=== PATIENT | female | born 1995 | race Caucasian/White ===

== ENCOUNTER 2024-10-22 19:02 | Emergency (ER) | payer MEDICAID, SELFPAY ==
--- OUTSIDE RECORDS SUMMARY | 2024-05-10 11:00 | XMS_ITS ---
Author Organization [facility] Address [address] [place] [address] Care Team Providers Care Scenic Arts Supervisor Name Role Phone Becca Quintanilla Primary Care Provider REASON FOR VISIT 3 month f/u Encounters Encounter Location Date Provider Diagnosis [facility] [address] [place] [address] 05/10/2024 Becca Quintanilla Plan Of Treatment No Information Progress Notes * FLORIAN ROBINS KDOB:1995 (29 yo F)Acc No.[id number]:05/10/2024 Behavioral Health Patient: Alex ZUNIGA FLORIAN Copeland Appointment Provider: GREGORIA JONES :1995 A ge:28 Y S ex:Female Date:05/10/2024 Address:[address] [place] [address] Subjective: * Chief Complaints: * 1 . 3 month f/u. * Medical History: Objective: * Vitals: Assessment: Plan: * Treatment: Care Plan: * Problems: * Images: * Electronic signature of ZEN Weiss i on 10/22/2024 at 07:49 PM EDT Sign off status: Pending * Appointment Provider: GREGORIA JONES Date: 0 05/10/2024 Generated for Letitia watt/Heike/Deborah on: 0 10/22/2024 07:49 PM EDT
--- OUTSIDE RECORDS SUMMARY | 2024-08-09 04:26 | XMS_ITS | Continuity of Care Document ---
Author Organization [facility] Address [address] [place] [address] Phone Care Team Providers Care Senior Web Analyst Name Role Phone Octaviano Dawn Unavailable Unavailable Procedures Procedure Date ROUTINE VENIPUNCTURE Advance Directives Directive Yes / No Effective Date File Name No Information Encounters Encounter Description Practice Location Reason(s) For Visit Diagnoses Date Provider Providers Copied on Encounter [facility], [address], [place], [id number], [place] tel:[phone] [facility] pre employment (chief complaint) No Information Bunny Garcia. [address], [place], [id number], [place]. tel:[phone] Family History Family Member Type Diagnosis Age At Onset No Information Payers Payer name Insurance type Covered constitution party ID Authoriza tion(s) Self Pay Cap 09 [id number] Social History Type Description Quantity Date Captured Comments Alcohol Use Details Unknown Caffeine Use Details Unknown Tobacco Use Status No Information Smoking Status No Information Sex Female Chief Complaint And Reason For Visit From encounter dated '08/09/2024 08:26'. pre employment (chief complaint). Description: Pre employment lad draw.BRIANeiAmarjit Reason For Referral Reason For Referral No Information Plan Of Treatment Date Type Action Status Goal PRAPARE ASSESSMENT. Due on J due Goal Unhealthy drug use screening . Due on due Goal Depression screening. Due on due Goal Tdap. Due on due Goal RLP. Due on due Goal Tdap Vaccine. Due on 2024 due Goal PAP. Due on due Goal Influenza vaccine. Due on Ju due Goal Hepatitis C screening. Due o n due Goal Hep A. Due on du e History Of Present Illness Encounter Date Complaint History Of Prese nt Illness pre employment Pre [facility] l [facility] Functional Status Date Functional Assessmen t No Information Instructions Date Instruction Additional Infor mation No Information Assessments Type Assessment Date No Information Patient Care Teams Name Effective Dates (start - stop) Status Members No Information
--- OUTSIDE RECORDS SUMMARY | 2024-10-14 18:15 | XMS_ITS | Encounter Summary ---
Author Organization [facility] Address [address] [place] [address] Care Team Providers Care Armored Car Messenger Name Role Phone Walekr Henry DO Primary Care Provider [phone] Walker Henry DO Unavailable [phone] Encounter Details Date Type Department Care Team (Late st Contact Info) Description 10/14/2024 6:15 PM EDT [facility] [address] [place] [address] Dalila Montez, WIRELESS FIELD TECHNICIAN [address] [place] [address] Dysuria (Primary Dx); Acute cystitis with hematuria Social History Tobacco Use Types Packs/Day Years Used Date Smoking Tobacco: Never Smokeless Tobacco: Never Alcohol Use Standard Drinks/Week Comments Not Currently 1 (1 standard drink = 0.6 oz pur e alcohol) PHQ-2 Answer Date Recorded Patient Health Questionnaire-2 Score 0 10/06/2024 Comments No Sex and Gender Information Value Date Recorded Sex Assigned at Not on file Legal Sex Female 7:09 PM EDT Gender Identity Not on file Sexual Orientation Not on file documented as of this encounter Last Filed Vital Signs Vital Sign Reading Time Taken Comments Blood Pressure 124/80 10/14/2024 6:22 PM EDT Pulse 88 10/14/2024 6:22 PM EDT Temperature 36.7 C (98 F) 10/14/2024 6:22 PM EDT Respiratory Rate - - Oxygen Saturation 99% 10/14/2024 6:22 PM EDT Inhaled Oxygen Concentration - - Weight 65.8 kg (145 lb) 10/14/2024 6:22 PM EDT Height - - Body Mass Index 24.89 10/06/2024 1:50 PM EDT documented in this encounter Progress Notes * Dalila Montez, PANKAJ - 10/14/2024 6:15 PM EDT Images from the original note were not included. [address], [address] [facility], [address] P: [phone] F: [phone] HPI Historian of HPI: patient Lourdes Patricia is a 29 y.o. female who presents today to the Urgent Care with the following complaints and denials which have been present for 4 day(s) pt states she had a hysterectomy on 10/01/2024. Pt states she saw her OB on Friday for a UTI and was placed on sulfamethoxazole tmp ds which pt feels that amitotic is not helping at all. Pt would like a new antibiotic. C/O Denies Symptom Comments [x] [] Dysuria Bladder spasms [x] [] hematuria Blood in urine [] [x] Urinary frequency [] [x] Urinary incontinence [] [x] Urinary urgency [] [x] Genital itching [] [x] Genital discharge [] [x] Back pain [x] [] Abd pain Additional Comments: pt has not taken any OTC medications IH Testing: An In-House UA has been obtained ROS A complete system ROS was performed and negative aside from the pertinent positives noted in the HPI and PE. PHYSICAL EXAM Gen: well nourished, no acute distress, interactive Head: normocephalic, atraumatic HEENT: TMs pearly pagan, tongue midline, mucous membranes moist Lungs: CTAB, respiratory effort normal Heart: RRR without murmur, rub, gallop Abdomen: BS x 4, soft, no palpable mass, suprapubic tenderness Extremities: warm to touch, capillary refill x 3 seconds Neuro: alert, oriented, moving all extremities Psych: cooperative, appropriately interactive TREATMENT PLAN 1. Dysuria (Primary) UA results discussed. Instructed to call on Friday for culture results. - URINALYSIS ANALYZER TEST - URINARY TRACT INFECTION (HTRX) 2. Acute cystitis with hematuria Diagnosis and testing results discussed Push fluids, rest, good handwashing, avoid tub baths and jacuzzis To ER for any worsening of symptoms - to the ER for worsening cramping, increased bleeding saturating pads, fever, worsening pain Follow up with gynecology in 3-5 days for recheck of symptoms Call office in 2-3 days for culture results - nitrofurantoin, macrocrystal-monohydrate, (Macrobid) 100 MG capsule; Take 1 capsule (100 mg) by mouth in the morning and 1 capsule (100 mg) before bedtime. Do all this for 7 days. Dispense: 14 capsule; Refill: 0 documented in this encounter Miscellaneous Notes * Addendum Note - Jolanta Wright MA - 10/14/2024 6:15 PM EDTAddended by: JOLANTA WRIGHT on: 10/16/2024 06:53 PM Modules accepted: Level of Service documented in this encounter Plan of Treatment Not on file documented as of this encounter Procedures Procedure Name Priority Date/Time Associated Diagnosis Comments URINARY TRACT INFECTION (HTRX) Routine 10/14/2024 6:38 PM EDT Dysuria URINALYSIS ANALYZER TEST Routine 10/14/2024 6:27 PM EDT Dysuria documented in this encounter Results * (ABNORMAL) URINARY TRACT INFECTION (HTRX) (10/14/2024 6:38 PM EDT) Pathologist [facility] TET B, TET M 26.786(A) 23.000 - 27.500 ppm 10/16/2024 6:58 AM EDT [facility] TET B, TET M Detected(A) 23.000 - 27.500 ppm 10/16/2024 6:58 AM EDT [facility] ACINETOBACTER BAUMANII 0 19.961 - 24.689 ppm 10/16/2024 6:58 AM EDT [facility] ACINETOBACTER BAUMANII Not Detected 19.961 - 24.689 ppm 10/16/2024 6:58 AM EDT [facility] CITROBACTER FREUNDII 0 23.000 - 32.015 ppm 10/16/2024 6:58 AM EDT [facility] CITROBACTER FREUNDII Not Detected 23.000 - 32.015 ppm 10/16/2024 6:58 AM EDT [facility] ENTEROBACTER AEROGENES, CLOACAE 0 23.000 - 32.290 ppm 10/16/2024 6:58 AM EDT [facility] ENTEROBACTER AEROGENES, CLOACAE Not Detected 23.000 - 32.290 ppm 10/16/2024 6:58 AM EDT [facility] ENTEROCOCCUS FAECALIS, FAECIUM 0 26.000 - 33.043 ppm 10/16/2024 6:58 AM EDT [facility] ENTEROCOCCUS FAECALIS, FAECIUM Not Detected 26.000 - 33.043 ppm 10/16/2024 6:58 AM EDT [facility] ESCHERICHIA COLI 25.314(A) 23.000 - 28.500 ppm 10/16/2024 6:58 AM EDT [facility] ESCHERICHIA COLI Detected(A) 23.000 - 28.500 ppm 10/16/2024 6:58 AM EDT [facility] KLEBSIELLA PNEUMONIAE, OXYTOCA 0 23.000 - 31.865 ppm 10/16/2024 6:58 AM EDT [facility] KLEBSIELLA PNEUMONIAE, OXYTOCA Not Detected 23.000 - 31.865 ppm 10/16/2024 6:58 AM EDT [facility] MORGANELLA MORGANII 0 19.961 - 24.689 ppm 10/16/2024 6:58 AM EDT [facility] MORGANELLA MORGANII Not Detected 19.961 - 24.689 ppm 10/16/2024 6:58 AM EDT [facility] PROTEUS MIRABILIS, VULGARIS 0 23.000 - 28.500 ppm 10/16/2024 6:58 AM EDT [facility] PROTEUS MIRABILIS, VULGARIS Not Detected 23.000 - 28.500 ppm 10/16/2024 6:58 AM EDT [facility] PSEUDOMONAS AERUGINOSA 0 23.000 - 31.801 ppm 10/16/2024 6:58 AM EDT [facility] PSEUDOMONAS AERUGINOSA Not Detected 23.000 - 31.801 ppm 10/16/2024 6:58 AM EDT [facility] STAPHYLOCOCCUS AUREUS 0 26.000 - 31.595 ppm 10/16/2024 6:58 AM EDT [facility] STAPHYLOCOCCUS AUREUS Not Detected 26.000 - 31.595 ppm 10/16/2024 6:58 AM EDT [facility] STREPTOCOCCUS AGALACTIAE (GROUP B STREP) 0 26.000 - 32.435 ppm 10/16/2024 6:58 AM EDT [facility] STREPTOCOCCUS AGALACTIAE (GROUP B STREP) Not Detected 26.000 - 32.435 ppm 10/16/2024 6:58 AM EDT [facility] DAVID ALBICANS, PARAPSILOSIS, TROPICALIS 0 23.000 - 30.347 ppm 10/16/2024 6:58 AM EDT [facility] DAVID ALBICANS, PARAPSILOSIS, TROPICALIS Not Detected 23.000 - 30.347 ppm 10/16/2024 6:58 AM EDT [facility] DAVID GLABRATA 0 23.000 - 31.618 ppm 10/16/2024 6:58 AM EDT [facility] DAVID GLABRATA Not Detected 23.000 - 31.618 ppm 10/16/2024 6:58 AM EDT [facility] DAVID KRUSEI 0 23.000 - 30.873 ppm 10/16/2024 6:58 AM EDT [facility] DAVID KRUSEI Not Detected 23.000 - 30.873 ppm 10/16/2024 6:58 AM EDT [facility] SERRATIA MARCESCENS 0 23.000 - 31.581 ppm 10/16/2024 6:58 AM EDT [facility] SERRATIA MARCESCENS Not Detected 23.000 - 31.581 ppm 10/16/2024 6:58 AM EDT [facility] STREPTOCOCCUS PYOGENES (GROUP A STREP) 0 19.961 - 24.689 ppm 10/16/2024 6:58 AM EDT [facility] STREPTOCOCCUS PYOGENES (GROUP A STREP) Not Detected 19.961 - 24.689 ppm 10/16/2024 6:58 AM EDT [facility] STAPHYLOCOCCUS EPIDERMIDIS, HAEMOLYTICUS, LUGDUNENSIS, SAPROPHYTICUS (URINA 0 19.961 - 24.689 ppm 10/16/2024 6:58 AM EDT [facility] STAPHYLOCOCCUS EPIDERMIDIS, HAEMOLYTICUS, LUGDUNENSIS, SAPROPHYTICUS (URINA Not Detected 19.961 - 24.689 ppm 10/16/2024 6:58 AM EDT [facility] STAPHYLOCOCCUS EPIDERMIDIS, HAEMOLYTICUS, LUGDUNENSIS, SAPROPHYTICUS (URINA 0 19.961 - 24.689 ppm 10/16/2024 6:58 AM EDT [facility] STAPHYLOCOCCUS EPIDERMIDIS, HAEMOLYTICUS, LUGDUNENSIS, SAPROPHYTICUS (URINA Not Detected 19.961 - 24.689 ppm 10/16/2024 6:58 AM EDT [facility] Urine 10/14/2024 6:38 PM EDT 10/16/2024 1:20 AM EDT us Dalila Montez NP LAB BLOOD ORDERABLES Final R esult [facility] [address] [address] * (ABNORMAL) URINALYSIS ANALYZER TEST (10/14/2024 6:27 PM EDT) LEUKOCYTES negative Negative NITRITES negative Negative UROBILINOGEN negative 0.2 - 1.0 PROTEIN 1+ Negative PH 6.0 5.0 - 6.0 BLOOD 3+ Negative SPECIFIC GRAVITY 1.030 1.001 - 1.035 KETONES negative Negative BILIRUBIN negative Negative GLUCOSE negative Negative Urine 10/14/2024 6:27 PM EDT Dalila Montez WIRELESS FIELD TECHNICIAN POINT OF CARE TEST ENTER/DAMIEN T ORDERABLES Final Result documented in this encounter Visit Diagnoses Diagnosis Dysuria- Primary Acute cystitis with hematuria documented in this encounter Care Teams Armored Car Messenger Relationship Specialty Start Date End Date Walker Henry DO [address] [place] [address] PCP - General Family Medicine 08/01/22 Walker Henry DO [address] [place] [address] PCP - [facility] 03/03/24 documented as of this encounter
--- OUTSIDE RECORDS SUMMARY | 2024-10-22 19:49 | XMS_ITS | Clinical Summary ---
Author Organization [facility] Address [address] [place] [id number] Care Team Providers Care Metal Polisher And Buffer Apprentice Name Role Phone Anette Webster MD Unavailable [phone] Walker Henry DO Primary Care Provid er Dagoberto Wallace MD Unavailable [phone] Allergies Active Allergy Reactions Criticality Noted Date Comments Banana Unknown 01/31/2016 Estrogens Contraindication-M edical Surgical 02/15/2016 pt has hx of stroke 07/2015 Lactose GI Upset 01/31/2016 Medroxyprogesterone Acetate Hives 10/18/19 15 fever Pineapple Swelling 01/31/2016 Medications clopidogrel (PLAVIX) 75 mg tablet Take 75 mg by mouth once daily. Active DULoxetine (CYMBALTA) 30 mg capsule Take 1 capsule by mouth once daily. 8 Active DULoxetine (CYMBALTA) 60 mg capsule Take 1 capsule by mouth once daily. 8 Active doxylamine-pyri doxine, vit B6, (DICLEGIS) 10-10 mg TbEC Day 1: Take 2 tabs at bedtime. If symptoms persist, add 1 tab in AM on day 3. If symptoms persist, add 1 tab in afternoon on day 4. 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 Family History Medical History Relation Comments Coronary Artery Disease Maternal Grandmother Hypertension Mother Moon Danlos Syndrome Other dx at age 32 Cancer Paternal Grandfather Coronary Artery Disease Paternal Grandfather Cancer Paternal Grandmother Relation Status Comments Brother Alive Father Alive Maternal Grandmother Mother Alive Other Paternal Grandfather Paternal Grandmother Sister Alive Social History Tobacco Use Types Packs/Day Years Used Date Smoking Tobacco: Never Smokeless Tobacco: Never Alcohol Use Standard Drinks/Week Comments No 0 (1 standard drink = 0.6 oz pur e alcohol) Area Deprivation Index Answer Date Christian rded National Score (1-100), lower number is lower ri sk Not on file 02/09/2020 State Score (1-10), lower number is lower risk N ot on file 02/09/2020 Data from: https://www.neighborhoodatlas.medicine.[facility].edu/. Last address used for calculation Not on file 02/09/2020 Comments No Sex and Gender Information Value Date Recorded Sex Assigned at Not on file Legal Sex Female 11:03 PM EDT Gender Identity Not on file Sexual Orientation Not on file Last Filed Vital Signs Vital Sign Reading Time Taken Comments Blood Pressure 110/78 03/13/2017 1:21 PM EST Pulse 80 04/17/2016 9:36 AM EST (from Extended Vitals) Temperature 36.7 C (98 F) 04/17/2016 9:33 AM EST Respiratory Rate 18 04/11/2016 9:14 AM EST Oxygen Saturation 99% 04/17/2016 9:3 3 AM EST Inhaled Oxygen Concentration - - Weight 56.5 kg (124 lb 9.6 oz) 09/22/2017 2:57 PM EDT Height 160 cm (5' 3 ) 09/22/2017 2:57 PM EDT Body Mass Index 22.07 09/22/2017 2:57 PM EDT Plan of Treatment Health Maintenance Due Date Last Done Comments Anxiety Screening 2012 Depression Screening 2012 HIV Screening 2012 Hepatitis C Screening 2012 DTaP,Tdap,Td Vaccine (1 - Tdap) 2013 Hepatitis B Vaccine (1 of 3 - 19+ 3-dose series) 2013 Cervical Cancer Screening 04/02/2019 04/02/2016 Influenza Vaccine (#1) 2024 7 (Patient/Parent/Guardian Counseled and Declines) HPV Vaccine Discontinued Procedures Procedure Name Priority Date/Time Associated Diagnosis Comments PAP FLUID CERVICAL SCREENING Routine 04/02/2016 11:55 AM EST Encounter for gynecological examination without abnormal finding Screening for malignant neoplasm of cervix from Last 3 Months or Most Recently Relevant to Health Maintenance Results * (ABNORMAL) PAP FLUID CERVICAL SCREENING (04/02/2016 11:55 AM EST) Battery Technician ---Abnormal Pap Test - Epithelial Cell Abnormality--- Specimen originated from [facility] Specimen #: [id number] Submitting Physician: Lesly Woodson M.D. SPECIMEN SUBMITTED A: CERVICAL, SCREENING, FLUID FINAL DIAGNOSIS A. CERVICAL, SCREENING, FLUID Satisfactory for interpretation. Epithelial cell abnormality. Low grade squamous intraepithelial lesion (LSIL). This specimen has been analyzed by the ThinPrep Imaging System, an automated imaging and review system, which assists the laboratory in evaluating cells on ThinPrep Pap tests. Following automated imaging, selected suarez from every slide are reviewed by a aircraft instrument repairer. Ludmila Chow M.D., Ph.D (Electronic Signature) CLINICAL DATA ROUTINE EXAM, HPV Testing: Yes, Reflex HPV for ASCUS Date of Last Menstrual Period: 01/03/2016 STAINS A: CERVICAL, SCREENING, FLUID THIN PREP CLAM PICKER Date of Report: 04/11/2016 Date of Procedure: 04/02/2016 Date of Receipt: 04/03/2016 Submitted by: Lesly Woodson M.D. Location: [facility] Diagnostic interpretation performed at [address], [place] [address]. The Pap Smear is a screening test for cervical cancer. False negative results occur with all screening tests, emphasizing the need for rescreening at recommended intervals, and clinical correlation.(A) [facility] Specimen from uterine cervix (specimen) CERVICAL / Unknown 04/02/2016 11:55 AM EST 04/03/2016 1:21 PM EST Lesly Woodson MD CYTOLOGY Final Result [facility] [id number] [address] [place] [phone] from Last 3 Months or Most Recently Relevant to Health Maintenance Insurance [facility] [place] [employer] Care Teams Metal Polisher And Buffer Apprentice Relationship Specialty Start Date End Date Walker Henry DO [address] [id number] PCP - General Family Medicine 01/31/16 Anette Webster MD [address] [place] [address] Physician Reproductive Endocrinology 02/13/15 Dagoberto Wallace MD [address] [address] Consulting Neurology 04/17/16
--- OUTSIDE RECORDS SUMMARY | 2024-10-22 19:49 | XMS_ITS | Encounter Summary ---
Author Organization [facility] Address [address] [place] [address] Care Team Providers Care Liquefaction Supervisor Name Role Phone Walker Henry DO Primary Care Provider [phone] Walker Henry DO Unavailable [phone] Encounter Details Date Type Department Care Team (Latest Contact Info) Description 10/14/2024 Travel Social History Tobacco Use Types Packs/Day Years [...] on file documented as of this encounter Plan of Treatment Not on file documented as of this encounter Visit Diagnoses Not on filedocumented in this encounter Care Teams Liquefaction Supervisor Relationship Specialty Start Date End Date Walker Henry DO [address] [place] [address] PCP - General Family Medicine 08/01/22 Walker Henry DO [address] [place] [address] PCP - [facility] 03/03/24 documented as of this encounter
--- OUTSIDE RECORDS SUMMARY | 2024-10-22 19:49 | XMS_ITS | Encounter Summary ---
Author Organization [facility] Address [address] [place] [address] Care Team Providers Care Programmer Or Analyst Name Role Phone Walker Henry DO Primary Care Provider [phone]- [phone] Walker Henry DO Unavailable [phone] Encounter Details Date Type Department Care Team (Late st Contact Info) Description 09/06/2024 Abstract [facility] [place] [facility] [address] [place] [address] Walker Henry, [address] [place] [address] Social History Tobacco Use Types Packs/Day Years Used Date Smoking Tobacco: Never Smokeless Tobacco: Never Alcohol Use Standard Drinks/Week Comments Not Currently 1 (1 standard drink = 0.6 oz pur e alcohol) PHQ-2 Answer Date Recorded Patient Health Questionnaire-2 Score 0 08/12/2024 Comments No Sex and Gender Information Value Date Recorded Sex Assigned at Not on file Legal Sex Female 7:09 PM EDT Gender Identity Not on file Sexual Orientation Not on file documented as of this encounter Plan of Treatment Not on file documented as of this encounter Visit Diagnoses Not on filedocumented in this encounter Care Teams Programmer Or Analyst Relationship Specialty Start Date End Date Walker Henry DO [address] [place] [address] PCP - General Family Medicine 08/01/22 Walker Henry DO [address] [place] [address] [facility] - [facility] 03/03/24 documented as of this encounter
--- OUTSIDE RECORDS SUMMARY | 2024-10-22 19:49 | XMS_ITS | Encounter Summary ---
Author Organization [facility] Address [address] [place] [address] Care Team Providers Care Mat Cutter Name Role Phone Walker Henry DO Primary Care Provider +- [phone] Walker Henry DO Unavailable [phone] Encounter Details Date Type Department Care Team (Late st Contact Info) Description 08/19/2024 Abstract [facility] [place] [facility] [address] [place] [address] Walker Henry, [address] [place] [address] Social History Tobacco Use Types Packs/Day Years [...] on filedocumented in this encounter Care Teams Mat Cutter Relationship Specialty Start Date End Date Walker Henry DO [address] [place] [address] PCP - General Family Medicine 08/01/22 Walker Henry DO [address] [place] [address] [facility] - [facility] 03/03/24 documented as of this encounter
--- OUTSIDE RECORDS SUMMARY | 2024-10-22 19:49 | XMS_ITS | Encounter Summary ---
Author Organization [facility] Address [address] [place] [address] Care Team Providers Care Instrument And Control Service Person Name Role Phone Walker Henry DO Primary Care Provider [phone]- [phone] Walker Henry DO Unavailable [phone] Encounter Details Date Type Department Care Team (Late st Contact Info) Description 09/06/2024 Abstract [facility] [place] [facility] [address] [place] [phone] Walker Henry, [address] [place] [address] Social History Tobacco Use Types Packs/Day Years [...] on filedocumented in this encounter Care Teams Instrument And Control Service Person Relationship Specialty Start Date End Date Walker Henry DO [address] [place] [address] PCP - General Family Medicine 08/01/22 Walker Henry DO [address] [place] [address] [facility] - [facility] 03/03/24 documented as of this encounter
--- OUTSIDE RECORDS SUMMARY | 2024-10-22 19:49 | XMS_ITS | Encounter Summary ---
Author Organization [facility] Address [address] [place] [address] Care Team Providers Care Semiautomatic Stitcher Operator Name Role Phone Walker Henry DO Primary Care Provider [phone]- [phone] Walker Henry DO Unavailable [phone] Reason for Visit * Reason Comments Med Refill Encounter Details Date Type Department Care Team ([facility] Contact Info) Description 10/19/2024 Refill [facility] [address] [facility] [address] [place] [id number] Walker Henry, DO [address] [facility] [address] [place] [address] Migraine without aura and without status migrainosus, not intractable Social History Tobacco Use Types Packs/Day Years [...] on file documented as of this encounter Miscellaneous Notes * Telephone Encounter - Cookie Jaeger MA - 10/19/2024 11:31 AM EDT Rx sent per Dr. Clark. documented in this encounter Plan of Treatment Not on file documented as of this encounter Visit Diagnoses Diagnosis Migraine without aura and without status migrainosus, not intractable documented in this encounter Care Teams Semiautomatic Stitcher Operator Relationship Specialty Start Date End Date Walker Henry DO [address] [place] [address] PCP - General Family Medicine 08/01/22 Walker Henry DO [address] [facility] [address] [place] [address] PCP - [facility] 03/03/24 documented as of this encounter
--- OUTSIDE RECORDS SUMMARY | 2024-10-22 19:49 | XMS_ITS | Encounter Summary ---
Author Organization [facility] Address [address] [place] [address] Care Team Providers Care Corporate Communications Specialist Name Role Phone Walker Henry DO Primary Care Provider [phone]- [phone] Walker Henry DO Unavailable [phone] Encounter Details Date Type Department Care Team (Late st Contact Info) Description 10/16/2024 Telephone [facility] [address] [place] [address] Sherine Garsia MA Social History Tobacco Use Types Packs/Day Years [...] encounter Miscellaneous Notes * Telephone Encounter - Carlos Morales MA - 10/17/2024 11:48 AM EDT Pt called back went over results above, pt understood and had no further questions at the time of call. * Telephone Encounter - Sherine Garsia MA - 10/17/2024 11:[address] Margaret urine grew E. Coli. Finish antibiotic given, and follow with PCP as directed. * Telephone Encounter - Sherine Garsia MA - 10/16/2024 1:55 PM EDT Culture report given to Dr. Blanca, awaiting response documented in this encounter Plan of Treatment Not on file documented as of this encounter Visit Diagnoses Not on filedocumented in this encounter Care Teams Corporate Communications Specialist Relationship Specialty Start Date End Date Walker Henry DO [address] [place] [address] PCP - General Family Medicine 08/01/22 Walker Henry DO [address] [place] [address] PCP - [facility] 03/03/24 documented as of this encounter
--- OUTSIDE RECORDS SUMMARY | 2024-10-22 19:49 | XMS_ITS | Encounter Summary ---
Author Organization [facility] Address [address] [place] [address] Care Team Providers Care Research Archaeologist Name Role Phone Walker Henry DO Primary Care Provider [phone]- [phone] Walker Henry DO Unavailable [phone] Encounter Details Date Type Department Care Team (Late st Contact Info) Description 10/07/2024 Abstract [facility] [address] [place] [phone] Walker Henry, [address] [place] [address] Social History Tobacco Use Types Packs/Day Years [...] on filedocumented in this encounter Care Teams Research Archaeologist Relationship Specialty Start Date End Date Walker Henry DO [address] [place] [address] PCP - General Family Medicine 08/01/22 Walker Henry DO [address] [place] [address] [facility] 03/03/24 documented as of this encounter
--- OUTSIDE RECORDS SUMMARY | 2024-10-22 19:50 | XMS_ITS | Encounter Summary ---
Author Organization [facility] Address [address] [place] [address] Care Team Providers Care Circus Laborer Name Role Phone Walker Henry DO Primary Care Provider [phone]- [phone] Ron Rhoades DO Unavailable [phone] Walker Henry DO Unavailable [phone] Encounter Details Date Type Department Care Team (Late st Contact Info) Description 04/07/2023 Orders Only [facility] [address] [place] [address] A, Unknown Practice [address] [id number] Social History Tobacco Use Types Packs/Day Years Used Date Smoking Tobacco: Never Smokeless Tobacco: Never Comments:vape Alcohol Use Standard Drinks/Week Comments Not Currently 1 (1 standard drink = 0.6 oz pur e alcohol) PHQ-2 Answer Date Recorded Patient Health Questionnaire-2 Score 0 11/05/2022 Comments Unknown Sex and Gender Information Value Date Recorded Sex Assigned at Not on file Legal Sex Female 7:09 PM EDT Gender Identity Not on file Sexual Orientation Not on file documented as of this encounter Plan of Treatment Not on file documented as of this encounter Procedures Procedure Name Priority Date/Time Associated Diagnosis Comments SCANNED LABS Routine 04/05/2023 8:16 AM EST documented in this encounter Results * SCANNED LABS (04/05/2023 8:16 AM EST) us Unknown Practice A LAB CHG PERFORMABLES Final Re sult documented in this encounter Visit Diagnoses Not on filedocumented in this encounter Care Teams Circus Laborer Relationship Specialty Start Date End Date Walker Henry DO [address] [place] [address] PCP - [facility] 08/01/22 Ron Rhoades DO [address] [place] [address] PCP - [facility] 06/01/22 Walker Henry DO [address] [place] [address] PCP - [facility] 03/03/24 documented as of this encounter
--- OUTSIDE RECORDS SUMMARY | 2024-10-22 19:50 | XMS_ITS | Encounter Summary ---
Author Organization [facility] Address [address] [place] [address] Care Team Providers Care Home Health Cna Name Role Phone Walker Henry DO Primary Care Provider [phone] Walker Henry DO Unavailable Reason for Visit * Reason Comments Med Change Request Encounter Details Date Type Department Care Team ([facility] Contact Info) Description 05/05/2024 Refill [facility] [address] [facility] 230 [place] [phone] Walker Henry DO [address] [facility] [address] [place] [address] Obesity (BMI 30-39.9); Weight gain Social History Tobacco Use Types Packs/Day Years Used Date Smoking Tobacco: Never Smokeless Tobacco: Never Alcohol Use Standard Drinks/Week Comments Not Currently 1 (1 standard drink = 0.6 oz pur e alcohol) PHQ-2 Answer Date Recorded Patient Health Questionnaire-2 Score 0 04/13/2024 Comments No Sex and Gender Information Value Date Recorded Sex Assigned at Not on file Legal Sex Female 7:09 PM EDT Gender Identity Not on file Sexual Orientation Not on file documented as of this encounter Plan of Treatment Not on file documented as of this encounter Visit Diagnoses Diagnosis Obesity (BMI 30-39.9) Weight gain Other symptoms concerning nutrition, metabolism, and development documented in this encounter Care Teams Home Health Cna Relationship Specialty Start Date End Date Walker Henry DO [address] [facility] [address] [place] [address] PCP - General Family Medicine 08/01/22 Walker Henry DO [address] [place] [address] PCP - [facility] 03/03/24 documented as of this encounter
--- OUTSIDE RECORDS SUMMARY | 2024-10-22 19:50 | XMS_ITS | Encounter Summary ---
Author Organization [facility] Address [address] [place] [address] Care Team Providers Care Caser Shoe Parts Name Role Phone Walker Henry DO Primary Care Provider [phone] Ron Rhoades DO Unavailable [phone] Walker Henry DO Unavailable [phone] Encounter Details Date Type Department Care Team (Late st Contact Info) Description 12/02/2022 Orders Only [facility] [address] [address] [address] [place] [address] A, Unknown Practice [address] [id number] Social History Tobacco Use Types Packs/Day Years [...] Date/Time Associated Diagnosis Comments SCANNED LABS Routine 11/28/2022 10:57 AM EDT SCANNED LABS Routine 11/28/2022 10:24 AM EDT documented in this encounter Results * SCANNED LABS (11/28/2022 10:57 AM EDT) us Unknown Practice A LAB CHG PERFORMABLES Final Re sult * SCANNED LABS (11/28/2022 10:24 AM EDT) us Unknown Practice A LAB CHG PERFORMABLES Final Re sult documented in this encounter Visit Diagnoses Not on filedocumented in this encounter Care Teams [employer] Relationship Specialty Start Date End Date Walker Henry DO [address] [place] [address] PCP - General Family Medicine 08/01/22 Ron Rhoades DO [address] [place] [address] PCP - [facility] 06/01/22 Walker Henry DO [address] [place] [address] PCP - [facility] 03/03/24 documented as of this encounter
--- OUTSIDE RECORDS SUMMARY | 2024-10-22 19:50 | XMS_ITS | Encounter Summary ---
Author Organization [facility] Address [address] [place] [address] Care Team Providers Care Accounts Specialist Name Role Phone Walker Henry DO Primary Care Provider +- [phone] Ron Rhoades DO Unavailable [phone] Walker Henry DO Unavailable [phone] Encounter Details Date Type Department Care Team (Late st Contact Info) Description 11/05/2022 Abstract [facility] [address] [facility] [address] [place] [address] Walker Henry, DO [address] [facility] [address] [place] [address] Social History Tobacco Use Types Packs/Day Years [...] on file documented as of this encounter Functional Status * Over the past 2 weeks, how often have you been bothered by any of the following problems? Question Answer Date of Assessment Author Little interest or pleasure in doing things Not at all 11/05/2022 10:18 AM EDT Alejandra Barahona L PN Feeling down, depressed, or hopeless Not at all 11/05/2022 10:18 AM EDT Alejandra Barahona L PN Patient Health Questionnaire -2 Score 0 11/05/2022 10:18 AM EDT Alejandra Barahona L PN documented as of this encounter Plan of Treatment Not on file documented as of this encounter Visit Diagnoses Not on filedocumented in this encounter Care Teams Accounts Specialist Relationship Specialty Start Date End Date Walker Henry DO [address] [place] [address] PCP - General Family Medicine 08/01/22 Ron Rhoades DO [address] [place] [address] PCP - [facility] 06/01/22 Walker Henry DO [address] [place] [address] PCP - [facility] 03/03/24 documented as of this encounter
--- OUTSIDE RECORDS SUMMARY | 2024-10-22 19:50 | XMS_ITS | Encounter Summary ---
Author Organization [facility] Address [address] [facility] [address] [place] [address] Care Team Providers Care Outbound Telemarketing Representative Name Role Phone Walker Henry DO Primary Care Provider [phone]- [phone] Ron Rhoades DO Unavailable [phone] Walker Henry DO Unavailable [phone] Encounter Details Date Type Department Care Team (Late st Contact Info) Description 04/25/2023 Orders Only [facility] [address] [facility] [address] [place] [address] A, Unknown Practice [address] [id number] Social History Tobacco Use Types Packs/Day Years [...] Procedure Name Priority Date/Time Associated Diagnosis Comments BONE SCAN Routine 04/23/2023 9:14 AM EST documented in this encounter Results * BONE SCAN (04/23/2023 9:14 AM EST) Anatomical Region Laterality Modality Radiographic Evangelina ging us Unknown Practice A IMG XR PROCEDURES Final Resul t documented in this encounter Visit Diagnoses Not on filedocumented in this encounter Care Teams Outbound Telemarketing Representative Relationship Specialty Start Date End Date Walker Henry DO [address] [place] [address] PCP - General Family Medicine 08/01/22 Ron Rhoades DO [address] [place] [address] PCP - [facility] 06/01/22 Walker Henry DO [address] [place] [address] PCP - [facility] 03/03/24 documented as of this encounter
--- OUTSIDE RECORDS SUMMARY | 2024-10-22 19:50 | XMS_ITS | Clinical Summary ---
Author Organization [facility] Address [facility] [place] [address] Care Team Providers Care Lime Mixer Name Role Phone Walker Henry Primary Care Provider [phone] Allergies Active Allergy Reactions Criticality Noted Date Comments Hydromorphone Hives 01/27/2022 Metoclopramide Hcl Unknown 01/27/2022 Muscle spasm's Vancomycin Hives 01/27/2022 Medications clopidogreL (PLAVIX) 75 mg tablet Take 1 (one) tablet (75 mg total) by mouth daily . Active Social History Tobacco Use Types Packs/Day Years Used Date Smoking Tobacco: Never Assessed Comments Unknown Sex and Gender Information Value Date Recorded Sex Assigned at Not on file Legal Sex Female 6:40 PM EST Gender Identity Not on file Sexual Orientation Not on file Last Filed Vital Signs Vital Sign Reading Time Taken Comments Blood Pressure 123/85 01/27/2022 6:42 PM EST Pulse 72 01/27/2022 6:42 PM EST Temperature 36.7 C (98.1 F) 01/27/2022 6:42 PM EST Respiratory Rate 20 01/27/2022 6:42 PM EST Oxygen Saturation 97% 01/27/2022 6:42 PM EST Inhaled Oxygen Concentration - - Weight 74.8 kg (165 lb) 01/27/2022 6:42 PM EST Height - - Body Mass Index - - Plan of Treatment Health Maintenance Due Date Last Done Comments Wellness Visit 1997 Depression Screening/Follow-Up (PHQ-2/9) 2006 HIV Screening 2009 Hepatitis C Screening 2012 Pap Smear 08/31/2015 COVID-19 Vaccine (4 - 2024-2 5 season) 2023 01/21/2021, 12/19/2020, 11/21/2020 Cervical Cancer Screening 2024 HPV/Cotest 2024 Influenza Vaccine (#1) 2024 , 01/02/2020, 02/17/2013 Tetanus: Every 10yrs 01/27/2028 01/26/2018, 04/27/2016, 11/15/2008 Pneumococcal Vaccine: Ped or At-Risk Aged Out No longer eligible b ased on patient's age to complete this topic Insurance [employer] PPO Member Subscriber Plan / Payer (Ef fective 2021-Present) Name:Lourdes Patricia Relation to Subscriber:Self Name:Lourdes Patricia Payer ID:Not on file Type:Not on file Address: [place] [id number] (Home) [id number] [employer] PPO Member Subscriber Plan / Payer (Ef fective 2021-Present) Name:Lourdes Patricia Relation to Subscriber:Self Name:Lourdes Patricia Payer ID:Not on file Type:Not on file Address: [place] [id number] [employer] Care Teams Lime Mixer Relationship Specialty Start Date End Date Walker Henry DO [address] [place] [address] PCP - General Endocrinology/Metabolism 01/27/22
--- OUTSIDE RECORDS SUMMARY | 2024-10-22 19:50 | XMS_ITS | Clinical Summary ---
Author Organization [facility] Address [address] [place] [address] Care Team Providers Care Senior Materials Planner Name Role Phone Walker Henry DO Primary Care Provider [phone] Walker Henry DO Unavailable [phone] Allergies Active Allergy Reactions Criticality Noted Date Comments Banana Unknown 01/31/2016 Estrogens Other 02/15/2016 pt has hx of stroke 07/2015 Hydromorphone Hives,Unknown 01/29/2021 Ibuprofen Hives,Unknown 01/29/2021 Lactose GI intolerance 01/31/2016 Medroxyprogesterone Hives,Anaphylaxis High 5 fever Metoclopramide Other,Unknown 01/29/2021 Muscle spasm's Other Reaction(s): swelling of tongue Pineapple Swelling,Unknown,Keysha p hylaxis High 01/31/2016 Vancomycin Hives,Rash,Unknown Low 01/29/2021 Wound Dressing Adhesive 10/11/2015 Medications hydrOXYzine HCl (Atarax) 10 MG tablet TAKE 1 TO 2 TABLETS NEEDED 025 Active lurasidone (Latuda) 60 MG tablet 025 Active clopidogrel (Plavix) 75 MG tabletIndication s:Cerebrovascula r accident (CVA), unspecified mechanism (HCC) TAKE 1 TABLET BY MOUTH EVERY DAY 90 tablet 1 025 Active Semaglutide-Weig ht Management (Wegovy) 0.25 MG/0.5ML solution auto-injectorInd ications:Weight gain,Thrombocyto penia,SVT (supraventricula r tachycardia) (HCC),Mixed bipolar affective disorder, mild (HCC) INJECT 0.25 MG SUBCUTANEOUSLY WEEKLY 2 mL 2 Active Additional Information Patient not taking.Reported on 10/14/2024 ondansetron ODT (Zofran-ODT) 8 MG disintegrating tabletIndication s:Migraine without aura and without status migrainosus, not intractable TAKE 1 TABLET BY MOUTH EVERY 8 HOURS NEEDED FOR NAUSEA AND VOMITING 20 tablet 1 Active clopidogrel (Plavix) 75 MG tabletIndication s:Cerebrovascula r accident (CVA), unspecified mechanism (HCC) TAKE 1 TABLET BY MOUTH EVERY DAY 90 tablet 025 2024 Discontinued ondansetron ODT (Zofran-ODT) 8 MG disintegrating tabletIndication s:Migraine without aura and without status migrainosus, not intractable TAKE 1 TABLET BY MOUTH EVERY 8 HOURS NEEDED FOR NAUSEA AND VOMITING 20 tablet 1 025 2024 Discontinued phentermine (Adipex-P) 37.5 MG tabletIndication s:Weight gain Take 1 tablet (37.5 mg) by mouth in the morning. Take before meals. 30 tablet 025 2024 Discontinued(T herapy completed) Semaglutide-Weig ht Management (Wegovy) 0.25 MG/0.5ML solution auto-injectorInd ications:Weight gain,Thrombocyto penia,SVT (supraventricula r tachycardia) (HCC),Mixed bipolar affective disorder, mild (HCC) Inject 0.25 mg under the skin 1 (one) time per week 2 mL 2 025 2024 Discontinued nitrofurantoin, macrocrystal-mon ohydrate, (Macrobid) 100 MG capsuleIndicatio ns:Acute cystitis with hematuria Take 1 capsule (100 mg) by mouth in the morning and 1 capsule (100 mg) before bedtime. Do all this for 7 days. 14 capsule 025 2024 Active Problems Problem Noted Date Diagnosed Date Class 1 obesity 10/06/2024 Obesity 10/06/2024 BMI 24.0-24.9, adult 09/27/2024 Preop cardiovascular exam 09/27/2024 Reaction to severe stress, unspecified Pre-eclampsia added to pre-existing hypertension ([facility]) 08/12/2024 Chronic hypertension with rodriguez perimposed pre-eclampsia ([facility]) 04/19/2023 Mastitis of right breast unr elated to of 04/19/2023 Chronic fatigue 11/05/2022 Mixed bipolar affective disorder, mild Migraine without aura and wi thout status migrainosus, not intractable 03/01/2019 Anxiety 10/21/2018 Bipolar 1 disorder 10/21/2018 Thrombocytopenia 03/31/2017 Major depressive disorder, single episode, moder ate 11/26/2016 Resolved Problems Problem Noted Date Diagnosed Date Resolved Date Upper respiratory virus 06/16/202406/01 Adjustment disorder 04/13/2024 06/17/19 25 Inattention 04/13/2024 06/16/2024 Obesity with body mass index 30 or greater 04/13/2024 06/16/2024 Obesity (BMI 30-39.9) 04/13/20242024 Cellulitis of right breast 08/27/2023 0 04/13/2024 Blood type, Rh negative 08/27/202304/03 Pre-eclampsia ([facility]) 08/27/202304/03 Abscess of right breast 04/19/202306/01 Amaurosis fugax 04/19/2023 04/13/2024 Rapid heart rate 04/19/2023 04/13/2024 Stroke 04/19/2023 04/13/2024 Adjustment disorder 11/05/2022 11/06/19 23 Duodenitis 11/05/2022 11/05/2022 Food intolerance 11/05/2022 11/05/2022 Inattention 11/05/2022 11/05/2022 Obesity with body mass index 30 or greater 11/05/2022 11/05/2022 Severe obesity (BMI 35.0-39. 9) with comorbidity 11/05/2022 11/05/2022 Vitamin D deficiency 11/05/2022 023 Morbid obesity 12/01/2020 04/13/2024 Nasal obstruction 03/16/2019 11/05/2022 Adverse effect of other anti -common-cold drugs, initial encounter 08/10/2018 11/05/2022 Chronic rhinitis 08/10/2018 11/05/2022 Cerebrovascular accident (CVA) 07/14/2017 04/13/2024 Levator spasm 04/21/2015 11/05/2022 Levator spasm 04/21/2015 06/16/2024 Ilioinguinal neuralgia of right side 03/24/2015 11/05/2022 Ilioinguinal neuralgia of right side 03/24/2015 06/16/2024 Dysmenorrhea 01/13/2012 06/16/2024 Encounters Date Type Department Care Team Description 10/19/2024 Refill [facility] [address] [place] [address] Walker Henry, Migraine without aura and without status migrainosus, not intractable 10/16/2024 Telephone [facility] [address] [place] [address] Sherine Garsia MA 10/14/2024 6:15 PM EDT Office Visit [facility] [address] [place] [phone] Dalila Montez NP Dysuria (Primary Dx); Acute cystitis with hematuria 10/14/2024 Travel 10/07/2024 Abstract [facility] [address] [place] [address] Walker Henry, 10/06/2024 2:00 PM EDT Office Visit [facility] [address] [place] [address] Walker Henry, Weight gain (Primary Dx); Thrombocytopenia; SVT (supraventricular tachycardia) (HCC); Mixed bipolar affective disorder, mild (HCC) 10/06/2024 Refill [facility] [address] [place] [phone] Walker Henry, DO Weight gain; Thrombocytopenia; SVT (supraventricular tachycardia) (HCC); Mixed bipolar affective disorder, mild (HCC) 10/06/2024 Refill [facility] [address] [place] [address] Walker Henry, DO Cerebrovascular accident (CVA), unspecified mechanism (HCC) 10/06/2024 Bamboo flowsheet [facility] [address] [place] [address] Walker Henry, DO 10/06/2024 Travel 09/28/2024 Abstract [facility] [address] [place] [address] Walker Henry, DO 09/17/2024 Refill [facility] [address] [place] [address] Walker Henry, DO Weight gain 09/06/2024 Abstract [facility] [address] [place] [address] Walker Henry, DO 09/06/2024 Abstract [facility] [address] [place] [address] Walker Henry, DO 08/26/2024 Refill [facility] [address] [place] [address] Walker Henry, DO Migraine without aura and without status migrainosus, not intractable 08/25/2024 Refill [facility] [address] [place] [address] Walker Henry, DO Weight gain 08/19/2024 Abstract [facility] [address] [place] [phone] Walker Henry, DO 08/12/2024 12:30 PM EDT Office Visit [facility] [address] [place] [address] Walker Henry, DO Ganglion cyst (Primary Dx) 08/12/2024 Bamboo flowsheet [facility] [address] [place] [address] Walker Henry, DO 08/12/2024 Travel 07/22/2024 Telephone [facility] [address] [place] [address] Walker Henry, DO 07/22/2024 Refill [facility] [address] [place] [address] Walker Henry, DO Weight gain from Last 3 Months Family History Medical History Relation Name Comments Lupus Brother 2 No Known Problems Daughter Relation Name Status Comments Brother 2 Alive Daughter Alive 1 Father Alive Mother Alive Sister 1 Alive Son Alive 1 Social History Tobacco Use Types Packs/Day Years Used Date Smoking Tobacco: Never Smokeless Tobacco: Never Tobacco Cessation:Counseling Given: No Alcohol Use Standard Drinks/Week Comments Not Currently [...] (145 lb) 10/14/2024 6:22 PM EDT Height 162.6 cm (5' 4 ) 10/06/2024 1:50 PM EDT Body Mass Index 24.89 10/06/2024 1:50 PM EDT Plan of Treatment Health Maintenance Due Date Last Done Comments Pap Smear 08/31/2015 Cervical Cancer Screening 2024 HPV/Cotest 2024 Influenza Vaccine (#1) 2024 , 01/05/2023, 11/21/2020, Additional history exists Procedures Procedure Name Priority Date/Time Associated Diagnosis Comments URINARY TRACT INFECTION (HTRX) Routine 10/14/2024 6:38 PM EDT Dysuria URINALYSIS ANALYZER TEST Routine 10/14/2024 6:27 PM EDT Dysuria from Last 3 Months Results * (ABNORMAL) URINARY TRACT INFECTION (HTRX) (10/14/2024 6:38 PM EDT) [facility] TET B, TET M 26.786(A) 23.000 - 27.500 ppm 10/16/2024 6:58 AM EDT [facility] TET B, TET M Detected(A) 23.000 - 27.500 ppm 10/16/2024 6:58 AM EDT [facility] ACINETOBACTER BAUMANII 0 19.961 - 24.689 ppm 10/16/2024 6:58 AM EDT [facility] ACINETOBACTER BAUMANII Not Detected 19.961 - 24.689 ppm 10/16/2024 6:58 AM EDT [facility] CITROBACTER FREUNDII 0 23.000 - 32.015 ppm 10/16/2024 6:58 AM EDT [facility] CITROBACTER FREUNDII Not Detected 23.000 - 32.015 ppm 10/16/2024 6:58 AM EDT [facility] ENTEROBACTER AEROGENES, CLOACAE 0 23.000 - 32.290 ppm 10/16/2024 6:58 AM EDT [facility] ENTEROBACTER AEROGENES, CLOACAE Not Detected 23.000 - 32.290 ppm 10/16/2024 6:58 AM EDT [facility] ENTEROCOCCUS FAECALIS, FAECIUM 0 26.000 - 33.043 ppm 10/16/2024 6:58 AM EDT [facility] ENTEROCOCCUS FAECALIS, FAECIUM Not Detected 26.000 - 33.043 ppm 10/16/2024 6:58 AM EDT [facility] ESCHERICHIA COLI 25.314(A) 23.000 - 28.500 ppm 10/16/2024 6:58 AM EDT [facility] ESCHERICHIA COLI Detected(A) 23.000 - 28.500 ppm 10/16/2024 6:58 AM EDT [facility] KLEBSIELLA PNEUMONIAE, OXYTOCA 0 23.000 - 31.865 ppm 10/16/2024 6:58 AM EDT [facility] KLEBSIELLA PNEUMONIAE, OXYTOCA Not Detected 23.000 - 31.865 ppm 10/16/2024 6:58 AM EDT [facility] MORGANELLA MORGANII 0 19.961 - 24.689 ppm 10/16/2024 6:58 AM EDT [facility] MORGANELLA MORGANII Not Detected 19.961 - 24.689 ppm 10/16/2024 6:58 AM EDT [facility] PROTEUS MIRABILIS, VULGARIS 0 23.000 - 28.500 ppm 10/16/2024 6:58 AM EDT [facility] PROTEUS MIRABILIS, VULGARIS Not Detected 23.000 - 28.500 ppm 10/16/2024 6:58 AM EDT [facility] PSEUDOMONAS AERUGINOSA 0 23.000 - 31.801 ppm 10/16/2024 6:58 AM EDT [facility] PSEUDOMONAS AERUGINOSA Not Detected 23.000 - 31.801 ppm 10/16/2024 6:58 AM EDT [facility] STAPHYLOCOCCUS AUREUS 0 26.000 - 31.595 ppm 10/16/2024 6:58 AM EDT [facility] STAPHYLOCOCCUS AUREUS Not Detected 26.000 - 31.595 ppm 10/16/2024 6:58 AM EDT [facility] STREPTOCOCCUS AGALACTIAE (GROUP B STREP) 0 26.000 - 32.435 ppm 10/16/2024 6:58 AM EDT [facility] STREPTOCOCCUS AGALACTIAE (GROUP B STREP) Not Detected 26.000 - 32.435 ppm 10/16/2024 6:58 AM EDT [facility] DAVID ALBICANS, PARAPSILOSIS, TROPICALIS 0 23.000 - 30.347 ppm 10/16/2024 6:58 AM EDT [facility] DAVID ALBICANS, PARAPSILOSIS, TROPICALIS Not Detected 23.000 - 30.347 ppm 10/16/2024 6:58 AM EDT [facility] DAVID GLABRATA 0 23.000 - 31.618 ppm 10/16/2024 6:58 AM EDT [facility] DAVID GLABRATA Not Detected 23.000 - 31.618 ppm 10/16/2024 6:58 AM EDT [facility] DAVID KRUSEI 0 23.000 - 30.873 ppm 10/16/2024 6:58 AM EDT [facility] DAVID KRUSEI Not Detected 23.000 - 30.873 ppm 10/16/2024 6:58 AM EDT [facility] SERRATIA MARCESCENS 0 23.000 - 31.581 ppm 10/16/2024 6:58 AM EDT [facility] SERRATIA MARCESCENS Not Detected 23.000 - 31.581 ppm 10/16/2024 6:58 AM EDT [facility] STREPTOCOCCUS PYOGENES (GROUP A STREP) 0 19.961 - 24.689 ppm 10/16/2024 6:58 AM EDT [facility] STREPTOCOCCUS PYOGENES (GROUP A STREP) Not Detected 19.961 - 24.689 ppm 10/16/2024 6:58 AM EDT [facility] STAPHYLOCOCCUS EPIDERMIDIS, HAEMOLYTICUS, LUGDUNENSIS, SAPROPHYTICUS (URINA 0 19.961 - 24.689 ppm 10/16/2024 6:58 AM EDT [facility] STAPHYLOCOCCUS EPIDERMIDIS, HAEMOLYTICUS, LUGDUNENSIS, SAPROPHYTICUS (URINA Not Detected 19.961 - 24.689 ppm 10/16/2024 6:58 AM EDT [facility] STAPHYLOCOCCUS EPIDERMIDIS, HAEMOLYTICUS, LUGDUNENSIS, SAPROPHYTICUS (URINA 0 19.961 - 24.689 ppm 10/16/2024 6:58 AM EDT [facility] STAPHYLOCOCCUS EPIDERMIDIS, HAEMOLYTICUS, LUGDUNENSIS, SAPROPHYTICUS (URINA Not Detected 19.961 - 24.689 ppm 10/16/2024 6:58 AM EDT [facility] Urine 10/14/2024 6:38 PM EDT 10/16/2024 1:20 AM EDT Dalila Montez STEAM SHOVEL OILER LAB BLOOD ORDERABLES Final R esult [facility] [address] [place] [address] * (ABNORMAL) URINALYSIS ANALYZER TEST (10/14/2024 6:27 PM EDT) LEUKOCYTES negative Negative NITRITES negative Negative UROBILINOGEN negative 0.2 - 1.0 PROTEIN 1+ Negative PH 6.0 5.0 - 6.0 BLOOD 3+ Negative SPECIFIC GRAVITY 1.030 1.001 - 1.035 KETONES negative Negative BILIRUBIN negative Negative GLUCOSE negative Negative Urine 10/14/2024 6:27 PM EDT Dalila Montez STEAM SHOVEL OILER POINT OF CARE TEST ENTER/DAMIEN T ORDERABLES Final Result from Last 3 Months Insurance [employer] Care Teams Senior Materials Planner Relationship Specialty Start Date End Date Walker Henry DO [address] [place] [address] PCP - General Family Medicine 08/01/22 Walker Henry DO [address] [place] [address] PCP - [facility] 03/03/24
--- OUTSIDE RECORDS SUMMARY | 2024-10-22 19:50 | XMS_ITS | Encounter Summary ---
Author Organization [facility] Address [address] [[email or web address] [place] [address] Care Team Providers Care Velvet Cutter Name Role Phone Walker Henry DO Primary Care Provider [phone] Ron Rhoades DO Unavailable [phone] Walker Henry DO Unavailable [phone] Encounter Details Date Type Department Care Team (Late st Contact Info) Description 11/29/2022 Orders Only [facility] [address] [place] [address] A, Unknown Practice [address] [id number] Social History Tobacco Use Types Packs/Day Years [...] Associated Diagnosis Comments SCANNED LABS Routine 11/28/2022 10:46 AM EDT SCANNED LABS Routine 11/28/2022 9:51 AM EDT documented in this encounter Results * SCANNED LABS (11/28/2022 10:46 AM EDT) us Unknown Practice A LAB CHG PERFORMABLES Final Re sult * [facility]ED [facility]S (11/28/2022 9:51 AM EDT) us Unknown Practice A LAB CHG PERFORMABLES Final Re sult documented in this encounter Visit Diagnoses Not on filedocumented in this encounter Care Teams Velvet Cutter Relationship Specialty Start Date End Date Walker Henry DO [address] [place] [address] PCP - General Family Medicine 08/01/22 Ron Rhoades DO [address] [place] [address] PCP - [facility] 06/01/22 Walker Henry DO [address] [place] [address] PCP - [facility] 03/03/24 documented as of this encounter
--- OUTSIDE RECORDS SUMMARY | 2024-10-22 19:50 | XMS_ITS | Clinical Summary ---
Author Organization [facility] Address [address], [address] [place] [address] Care Team Providers Care Thermoforming Machine Operator Name Role Phone Unavailable Primary Care Provider Unavailabl e Allergies Active Allergy Reactions Criticality Noted Date Comments Adhesive Tape 10/11/2015 Other 10/11/2015 All Depo Medications mirtazapine (REMERON) 15 MG tablet Take 15 mg by mouth nightly Active tiZANidine (ZANAFLEX) 4 MG tablet Take 4 mg by mouth every 6 hours as needed Active aspirin 81 MG tablet Take 81 mg by mouth daily Active Biotin 1 MG CAPS Take by mouth Active Social History Tobacco Use Types Packs/Day Years Used Date Smoking Tobacco: Never Comments Unknown Sex and Gender Information Value Date Recorded Sex Assigned at Not on file Legal Sex Female 8:43 PM EDT Gender Identity Not on file Sexual Orientation Not on file Last Filed Vital Signs Vital Sign Reading Time Taken Comments Blood Pressure 121/89 10/11/2015 1:36 PM EDT Pulse 78 10/11/2015 1:36 PM EDT Temperature - - Respiratory Rate - - Oxygen Saturation - - Inhaled Oxygen Concentration - - Weight 52.6 kg (116 lb) 10/11/2015 1:36 PM EDT Height 160 cm (5' 3 ) 10/11/2015 1:36 PM EDT Body Mass Index 20.55 10/11/2015 1:36 PM EDT Plan of Treatment Not on file
--- OUTSIDE RECORDS SUMMARY | 2024-10-22 19:50 | XMS_ITS | Clinical Summary ---
Author Organization [facility] Address [id number] [place] [address] Care Team Providers Care Motor Rebuilder Name Role Phone Unavailable Primary Care Provider Unavailabl e Allergies Active Allergy Reactions Criticality Noted Date Comments Hydromorphone 04/19/2023 Metoclopramide Hcl 04/19/2023 Vancomycin 04/19/2023 Medications clopidogreL (PLAVIX) 75 mg tablet Take 1 tablet (75 mg total) by mouth in the morning. Active lurasidone (LATUDA) 20 mg tablet Take 30 mg by mouth in the morning. Active labetaloL (NORMODYNE) 200 mg tablet Take 1 tablet (200 mg total) by mouth in the morning and 1 tablet (200 mg total) before bedtime. Morning . Active labetaloL (NORMODYNE) 100 mg tablet Take 1 tablet (100 mg total) by mouth in the morning and 1 tablet (100 mg total) before bedtime. nightly. Active PRENAT VIT [id number] M3,6 ORAL Take by mouth. Active Active Problems Problem Noted Date Diagnosed Date Amaurosis fugax 04/19/2023 Abscess of right breast 04/19/2023 Stroke 04/19/2023 Mastitis of right breast unr elated to of 04/19/2023 Chronic hypertension with superimposed pre-eclam psia 04/19/2023 Rapid heart rate 04/19/2023 Chronic fatigue 11/05/2022 Mixed bipolar affective disorder, mild Morbid obesity 12/01/2020 Migraine without aura and wi thout status migrainosus, not intractable 03/01/2019 Anxiety 10/21/2018 Bipolar 1 disorder 10/21/2018 Cerebrovascular accident (CVA) 07/14/2017 Thrombocytopenia 03/31/2017 Major depressive disorder, single episode, moder ate 11/26/2016 Levator spasm 04/21/2015 Ilioinguinal neuralgia of right side 03/24/2015 Social History Tobacco Use Types Packs/Day Years Used Date Smoking Tobacco: Never Smokeless Tobacco: Never Tobacco Cessation:Counseling Given: Not Answered Alcohol Use Standard Drinks/Week Comments Not Currently 0 (1 standard drink = 0.6 oz pur e alcohol) Childcare Answer Date Recorded Childcare Unknown 08/12/2018 Employment Answer Date Recorded Employment Unknown 08/12/2018 Comments No Sex and Gender Information Value Date Recorded Sex Assigned at Not on file Legal Sex Female 10:56 AM EDT Gender Identity Not on file Sexual Orientation Not on file Last Filed Vital Signs Vital Sign Reading Time Taken Comments Blood Pressure 135/80 04/19/2023 3:23 PM EST Pulse 115 04/19/2023 3:23 PM EST Temperature 36.7 C (98.1 F) 04/19/2023 3:23 PM EST Respiratory Rate 18 04/19/2023 3:23 PM EST Oxygen Saturation - - Inhaled Oxygen Concentration - - Weight 86.2 kg (190 lb) 04/19/2023 3:23 PM EST Height 162.6 cm (5' 4 ) 04/19/2023 3:23 PM EST Body Mass Index 32.61 04/19/2023 3:23 PM EST Plan of Treatment Health Maintenance Due Date Last Done Comments Depression Screening 2006 Pap Smear 08/31/2015 COVID-19 Vaccine (2023-2 5 season) 2023 12/19/2020, 11/21/2020 Adult BMI Screening 04/19/2024 04/19/2023 Tobacco Screening 04/19/2024 04/19/2023 Influenza Vaccine 11/01/2024 01/05/2023, , 02/17/2013 DTaP,Tdap and Td Vaccines (4 - Td or Tdap) 01/27/2028 01/26/2018, 04/27/2016, 11/15/2008 Medical Devices Not on file
--- OUTSIDE RECORDS SUMMARY | 2024-10-22 19:50 | XMS_ITS | Patient Health Record ---
Author Organization [facility] Address [address] [place] [address] Care Team Providers Care Newsperson Name Role Phone Becca Quintanilla Primary Care Provider [phone] Berna Roman [phone] Allergies Allergen (clinical drug ingredient) Drug/Non Drug Allergy documented on EMR Reaction Allergy Type Onset Date Status hydromorphone Dilaudid Unknown Drug Allergy Act oxana Motrin Unknown Drug Allergy Active metoclopramide Reglan Unknown Drug Allergy Ac tive vancomycin Vancomycin Unknown Drug Allergy Activ e Reason For Referral No Information Medications Medication SIG (Take, Route, Frequency, Duration) Notes Start Date End Date Status Loulou Not-Taking Lurasidone HCl 20 MG TAKE ONE TABLET BY MOUTH EVERY EVENING WITH FOOD; Duration: 30 Active busPIRone HCl 15 MG 1 tablet Orally Twic e a day; Duration: 30 days Not-Takin g CeleBREX Not-Taking Nurtec 75 MG 1 tablet Orally as needed (prn) Not-Taking Ondansetron 8 MG 1 tablet on the tong ue and allow to dissolve as needed Orally Once a day Active Emgality 120 MG/ML 1 ml Subcutaneous Not-Taking Active Qelbree 100 MG 1 capsule Orally Onc e a day; Duration: 30 day(s) Not-Lan ing Plavix 75 MG 1 tablet Orally once a day Active Venlafaxine HCl ER 37.5 MG 1 tablets Orally once a day; Duration: 30 days Not-Takin g Atomoxetine HCl 40 MG TAKE ONE CAPSULE B Y MOUTH EVERY MORNING; Duration: 30 Not-Taking Labetalol HCl 100 MG 1 tablet Orally Twi ce a day Not-Taking Geodon 20 MG 1 capsule with food Orally daily; Duration: 7 day(s) Not-Taking Latuda 40 MG 1 tablet in the even ing with food Orally Once a day; Duration: 30 days Active Ursodiol 300 MG 1 capsule in the morning, 1 capsule in the afternoon and 2 capsules at night Orally daily Not-Taking hydrOXYzine HCl 50 MG 1 tablet Orally as needed (prn); Duration: 30 day(s) 03/06/2021 Not-Taking Invega 6 MG 2 tablets Orally onc e a day Not-Taking Social History Tobacco Use: Social History Observation Description Date Details (start date - stop date) Never Smoker NA - NA Tobacco Screen: Question Answer Notes Are you a: never smoker Alcohol Screening: Question Answer Notes Did you have a drink contain ing alcohol in the past year? Yes How often did you have a dri nk containing alcohol in the past year? Monthly or less (1 point) How many drinks did you have on a typical day when you were drinking in the past year? 1 or 2 (0 points) Points 1 Interpretation Negative Depression Screening (PHQ-9): Question Answer Notes Little interest or pleasure in doing things Delia ral days Feeling down, depressed, or hopeless Several day s Trouble falling or staying asleep, or sleeping t oo much Not at all Feeling tired or having little energy Not at all Poor appetite or overeating Not at all Feeling bad about yourself-o r that you are a failure or have let yourself or your family down Not at all Trouble concentrating on thi ngs, such as reading the newspaper or watching television Not at all Moving or speaking so slowly that other people could have noticed. Or the opposite being so fidgety or restless that you have been moving around a lot more than usual Not at all Thoughts that you would be b torey off , or of hurting yourself in some way Not at all Total Score 2 Intepretation Minimal Depression Problems Problem Type SNOMED Code ICD Code Onset Dates Problem Status W/U Status Risk Notes Problem Mixed bipolar affective disorder, mild (651939703) Bipolar disorder, current episode mixed, mild (F31.61) Active confirmed Problem Obesity (434239886) Obesity (BMI 30-39.9) (E66.9) Active confirmed Problem Obese class I (553548657223015 ) BMI 33.0-33.9,adult (Z68.33) Active confirmed Problem BMI 30+ - obesity (906940919) BMI 32.0-32.9,adult (Z68.32) Active confirmed Problem Inattention (11206630) Inattention (R41.840) Active confirmed Problem Adjustment disorder (49990917) Unspecified Trauma- & Stressor-Relate d Disorder (F43.9) Active confirmed Encounters Encounter Location Date Provider Diagnosis [facility] [address] [place] [address] 04/21/2024 Becca Slingwine Bipolar disorder, current episode mixed, mild F31.61 [facility] [place] [address] 04/22/2024 Becca Slingwine [address] [place] [address] 05/21/2024 Becca Slingwine [facility] [place] [address] 03/18/2024 Becca Slingwine Bipolar disorder, current episode mixed, mild F31.61 [facility] [place] [address] 03/18/2024 Becca Slingwine [facility] [address] [facility] [facility] [place] [address] 11/11/2023 Berna Roman Bipolar disorder, current episode mixed, mild F31.61 [facility] [address] [facility] [place] [address] 02/10/2024 Becca Slingwine Bipolar disorder, current episode mixed, mild F31.61 Assessments Encounter Date Diagnosis (ICD Code) Assessment Notes Treatment Notes Treatment Clinical Notes Section Notes 11/11/2023 Bipolar disorder, current episode mixed, mild (ICD-10 - F31.61) . Informed consent obtained: YES, we discussed the diagnosis/diagnose s, the treatment options, treatment(s) recommended vs. no treatment. We discussed risks and benefits of treatment options, treatment recommendations vs. no treatment. . . Currently at low risk for self harm. Denies ongoing feelings of hopelessness. Denies ongoing suicidal ideation, intent or plan in session. . Recommended treatment is: Recommended treatment for Bipolar disorder includes FDA approved and OFF label medications: second generation antipsychotics and mood stabilizers. Discussed life threatening side effect of Lamotrigine. Pt is to monitor for new skin rashes or sensation of a sunburn or itchiness or redness, mouth sores or sores in mucus membranes, and call provider immediately and or go to ER, and stop the medication. Second generation antipsychotic medications can cause headache, drowsiness, agitation, dizziness, nausea, or extrapyramidal symptoms such as tremors, muscle spasms, slowness of movement or jerking of muscles. Stable The patient verbalizes understanding with all questions answered thoroughly and is in agreement with treatment plan. She will continue Latuda 20mg. Follow up 3 months or sooner if needed. Call for problems . GOALS: . Maintain medication regimen _Improve mood stability _Improve anxiety control _Improve social and interpersonal functioning Patient/Guardian will call sooner if symptoms worsen. Patient understands to go to ER if needed if symptoms become severe. Crisis Intervention plan was discussed and agreed upon. Patient/Guardian will call 911 in case of emergency. Emergency contact information was provided to the patient/guardian. follow up 3 months 02/10/2024 Bipolar disorder, current episode mixed, mild (ICD-10 - F31.61) 03/18/2024 Bipolar disorder, current episode mixed, mild (ICD-10 - F31.61) 04/21/2024 Bipolar disorder, current episode mixed, mild (ICD-10 - F31.61) 02/10/2024 Other folllow up in 3 months Patient educated on new antipsychotic dosing schedule and side effects. Made aware to not abruptly stop the medication. Made aware to notify the office or go to the ER if experience any abnormal repetitive movements. Also, made aware to notify office of any nausea, vomiting, or dizziness. Made aware to not stop medication abruptly. This is an FDA approved use for this medication. Discussed with patient crisis plan. Provided crisis hotline number. States has good support system. Made aware to contact office if has an increase in suicidal thoughts. If outside of office hours, patient to go to the ER. Patient will call the office with any questions or concerns. Patient educated about the importance of adequate sleep to your mental health. The bedroom should be kept dark to promote restful sleep. The patient should not use their phone or watch TV while in bed, these behaviors can be stimulating and keep the patient awake. . Informed consent obtained: YES, we discussed the diagnosis/diagnose s, the treatment options, treatment(s) recommended vs. no treatment. We discussed risks and benefits of treatment options, treatment recommendations vs. no treatment. . Plan Of Treatment No Information Insurance Providers Payer Name Payer Address Payer Phone Subscriber Number Group Number Insured Name Patient Relationship to Insured Coverage Start Date Coverage End Date [employer] [place] Medicaid [address] [place] [address] [id number] RJSTEVEN CopelandYEFRISara Self - patient is the insured 3 [facility] [address] [place] [address] [id number] RJSTEVEN CopelandFREDI Self - patient is the insured 3 [facility] E-termed 22 [address] [place] [address] [id number] BIENVENIDOBONIKAYLAH CopelandAMILACRSara Self - patient is the insured 1 3 [employer] MEDICAID [employer] after [facility] E-termed 22 [address] [place] [address] [phone] [id number] RJSTEVEN CopelandFREDI Self - patient is the insured 1 3 [facility] [address] [address] [place] [address] [id number] JULIENNE FLORIAN Self - patient is the insured 2 3 [employer] [address] [address] [place] [address] [id number] JULIENNE FLORIAN Self - patient is the insured 3 3 [facility] [address] [place] [address] [id number] FLORIAN ROBINS Self - patient is the insured 3 3 Medical (General) History Medical History History ICD Code Depression Bipolar Sneddons Syndrome Moon Eanlos Syndome Hx Stroke ICP Surgical History Surgery Date(Month/Year) [place] teeth Rhinoseptoplasy x2 Laparoscopy x4 Appendectomy Tubal ligation Hospitalization History Reason Date(Month/Year) Sepsis Stroke 2016 Child x2
--- OUTSIDE RECORDS SUMMARY | 2024-10-22 19:50 | XMS_ITS | Encounter Summary ---
Author Organization [facility] Address [address] [place] [address] Care Team Providers Care Hotel Recreational Facilities Manager Name Role Phone Walker Henry DO Primary Care Provider + [phone] Ron Rhoades DO Unavailable [phone] Walker Henry DO Unavailable [phone] Encounter Details Date Type Department Care Team (Late st Contact Info) Description 09/09/2023 Abstract [facility] [address] [facility] [address] [place] [address] Walker Henry DO [address] [facility] 230 [place] [address] Social History Tobacco Use Types Packs/Day Years Used Date Smoking Tobacco: Never Smokeless Tobacco: Never Alcohol Use Standard Drinks/Week Comments Not Currently 1 (1 standard drink = 0.6 oz pur e alcohol) PHQ-2 Answer Date Recorded Patient Health Questionnaire-2 Score 0 08/27/2023 Comments Unknown Sex and Gender Information Value Date Recorded Sex Assigned at Not on file Legal Sex Female 7:09 PM EDT Gender Identity Not on file Sexual Orientation Not on file documented as of this encounter Plan of Treatment Not on file documented as of this encounter Visit Diagnoses Not on filedocumented in this encounter Care Teams Hotel Recreational Facilities Manager Relationship Specialty Start Date End Date Walker Henry DO [address] [facility] [address] [place] [address] PCP - General Family Medicine 08/01/22 Ron Rhoades DO [address] [place] [address] PCP - [facility] 06/01/22 Walker Henry DO [address] [place] [address] PCP - [facility] 03/03/24 documented as of this encounter
--- OUTSIDE RECORDS SUMMARY | 2024-10-22 19:50 | XMS_ITS | Encounter Summary ---
Author Organization [facility] Address [address] [place] [address] Care Team Providers Care Stagecraft Teacher Name Role Phone Walker Henry DO Primary Care Provider +- [phone] Ron Rhoades DO Unavailable [phone] Walker Henry DO Unavailable [phone] Encounter Details Date Type Department Care Team (Late st Contact Info) Description 04/08/2023 Orders Only [facility] [address] [facility] [address] [place] [address] Terrence Luciano MD [address] [place] [address] Social History Tobacco Use Types Packs/Day Years [...] Date/Time Associated Diagnosis Comments SCANNED LABS Routine 04/08/2023 1:27 PM EST SCANNED LABS Routine 04/08/2023 10:07 AM EST documented in this encounter Results * SCANNED LABS (04/08/2023 1:27 PM EST) us Unknown Practice A LAB CHG PERFORMABLES Final Re sult * SCANNED LABS (04/08/2023 10:07 AM EST) us Terrence Luciano MD LAB CHG PERFORMABLES Final Res ult documented in this encounter Visit Diagnoses Not on filedocumented in this encounter Care Teams Stagecraft Teacher Relationship Specialty Start Date End Date Walker Henry DO [address] [place] [address] PCP - General Family Medicine 08/01/22 Ron Rhoades DO [address] [place] [address] PCP - [facility] 06/01/22 Walker Henry DO [address] [place] [address] PCP - [facility] DIRECTOR [employer] 03/03/24 documented as of this encounter
--- OUTSIDE RECORDS SUMMARY | 2024-10-22 19:50 | XMS_ITS | Encounter Summary ---
Author Organization [facility] Address [address] [place] [address] Care Team Providers Care Cnc Mill Set Up Operator Name Role Phone Walker Henry DO Primary Care Provider + [phone] Ron Rhoades DO Unavailable [phone] Walker Henry DO Unavailable [phone] Encounter Details Date Type Department Care Team (Late st Contact Info) Description 04/23/2023 Abstract [facility] [address] [facility] 230 [place] [address] Walker Henry DO [address] [facility] 230 [place] [address] Social History Tobacco Use Types Packs/Day Years [...] on filedocumented in this encounter Care Teams Cnc Mill Set Up Operator Relationship Specialty Start Date End Date Walker Henry DO [address] [place] [address] PCP - General Family Medicine 08/01/22 Ron Rhoades DO [address] [place] [address] PCP - [facility] 06/01/22 Walker Henry DO [address] [place] [address] PCP - [facility] 03/03/24 documented as of this encounter
--- OUTSIDE RECORDS SUMMARY | 2024-10-22 19:50 | XMS_ITS | Encounter Summary ---
Author Organization [facility] Address [address] [place] [address] [place] [address] Care Team Providers Care Motorized Squad Lieutenant Name Role Phone Walker Henry DO Primary Care Provider [phone] Ron Rhoades DO Unavailable [phone] Walker Henry DO Unavailable [phone] Encounter Details Date Type Department Care Team (Late st Contact Info) Description 04/16/2023 Orders Only [facility] [address] [facility] [address] [place] [address] A, Unknown Practice [address] [address] Social History Tobacco Use Types Packs/Day Years [...] Date/Time Associated Diagnosis Comments SCANNED LABS Routine 04/15/2023 8:13 AM EST documented in this encounter Results * SCANNED LABS (04/15/2023 8:13 AM EST) us Unknown Practice A LAB CHG PERFORMABLES Final Re sult documented in this encounter Visit Diagnoses Not on filedocumented in this encounter Care Teams Motorized Squad Lieutenant Relationship Specialty Start Date End Date Walker Henry DO [address] [place] [address] PCP - General [facility] Medicine 08/01/22 Ron Rhoades DO [address] [place] [address] PCP - [facility] 06/01/22 Walker Henry DO [address] [place] [address] PCP - [facility] 03/03/24 documented as of this encounter
--- OUTSIDE RECORDS SUMMARY | 2024-10-22 19:50 | XMS_ITS | Encounter Summary ---
Author Organization [facility] Address [address] [place] [address] Care Team Providers Care Booster Operator Name Role Phone Walker Henry DO Primary Care Provider + [phone] Ron Rhoades DO Unavailable [phone] Walker Henry DO Unavailable [phone] Encounter Details Date Type Department Care Team (Late st Contact Info) Description 09/10/2023 Abstract [facility] [address] [facility] [address] [place] [address] Walker Henry DO [address] [facility] 230 [place] [address] Social History Tobacco Use Types Packs/Day Years [...] on filedocumented in this encounter Care Teams Booster Operator Relationship Specialty Start Date End Date Walker Henry DO [address] [facility] [address] [place] [address] PCP - General Family Medicine 08/01/22 Ron Rhoades DO [address] [place] [address] PCP - [facility] 06/01/22 Walker Henry DO [address] [place] [address] PCP - [facility] 03/03/24 documented as of this encounter
--- OUTSIDE RECORDS SUMMARY | 2024-10-22 19:50 | XMS_ITS | Clinical Summary ---
Author Organization [facility] Address [address] [place] [address] Care Team Providers Care Supervisor Compressed Yeast Name Role Phone Unavailable Primary Care Provider Unavailabl e Social History Tobacco Use Types Packs/Day Years Used Date Smoking Tobacco: Never Assessed Comments Unknown Sex and Gender Information Value Date Recorded Sex Assigned at Not on file Legal Sex Female 11:45 PM EDT Gender Identity Not on file Sexual Orientation Not on file Plan of Treatment Not on file
--- OUTSIDE RECORDS SUMMARY | 2024-10-22 19:50 | XMS_ITS | Encounter Summary ---
Author Organization [facility] Address [address] [place] [address] Care Team Providers Care Director Of Recruiting Name Role Phone Walker Henry DO Primary Care Provider +- [phone] Walker Henry DO Unavailable [phone] Encounter Details Date Type Department Care Team (Late st Contact Info) Description 04/14/2024 Abstract [facility] [address] [place] [address] Walker Henry, [address] [place] [address] Social History Tobacco Use Types Packs/Day Years [...] on filedocumented in this encounter Care Teams Director Of Recruiting Relationship Specialty Start Date End Date Walker Henry DO [address] [place] [address] PCP - General Family Medicine 08/01/22 Walker Henry DO [address] [place] [address] [facility] 03/03/24 documented as of this encounter
--- OUTSIDE RECORDS SUMMARY | 2024-10-22 19:50 | XMS_ITS | Clinical Summary ---
Author Organization [facility] Address [address] [place] [address] Phone Care Team Providers Care Clamper Name Role Phone ElaineWalker Maria R SALDANA Primary Care Provider [phone] Allergies Active Allergy Reactions Criticality Noted Date Comments Hydromorphone Hives 01/29/2021 Metoclopramide Hcl Other 09/27/2024 Hypotension Muscle spasm Vancomycin Hives,Rash Low 01/29/2021 Medications clopidogrel (Plavix) 75 mg tablet Take 1 tablet (75 mg) by mouth once daily. 06/29/2024 Active lurasidone (Latuda) 80 mg tablet Take 1 tablet (80 mg) by mouth once daily. 09/21/2024 Active Active Problems Problem Noted Date Diagnosed Date Preop cardiovascular exam 09/27/2024 BMI 24.0-24.9, adult 09/27/2024 Encounters Date Type Department Care Team Description 09/27/2024 9:30 AM EDT Office Visit [address] [place] [address] Ivette Jimenez, SALES PERFORMANCE ANALYST-PHOTOVOLTAIC INSTALLER Preop cardiovascular exam (Primary Dx); BMI 24.0-24.9, adult 09/27/2024 Travel from Last 3 Months Immunizations Immunization Administration Dates Next Due Flu vaccine, trivalent, pres ervative free, no egg protein, age 6 months or greater (Flucelvax) 11/02/2023 Tdap vaccine, age 7 year and older (BOOSTRIX, ADACEL) 06/28/2023,01/26/2018,04/27/2016,2008 Family History Medical History Relation Name Comments Heart attack Father Hypertension Father Hypertension Mother Relation Name Status Comments Father Mother Social History Tobacco Use Types Packs/Day Years Used Date Smoking Tobacco: Never Smokeless Tobacco: Never Tobacco Cessation:Counseling Given: Not Answered Alcohol Use Standard Drinks/Week Comments Yes 0 (1 standard drink = 0.6 oz pur e alcohol) socailly Comments Unknown Sex and Gender Information Value Date Recorded Sex Assigned at Not on file Legal Sex Female 11:55 AM EST Gender Identity Not on file Sexual Orientation Not on file Last Filed Vital Signs Vital Sign Reading Time Taken Comments Blood Pressure 112/78 09/27/2024 9:32 AM EDT Pulse 70 09/27/2024 9:31 AM EDT Temperature - - Respiratory Rate - - Oxygen Saturation - - Inhaled Oxygen Concentration - - Weight 65.3 kg (144 lb) 09/27/2024 9:31 AM EDT Height 162.6 cm (5' 4 ) 09/27/2024 9:31 AM EDT Body Mass Index 24.72 09/27/2024 9:31 AM EDT Plan of Treatment Health Maintenance Due Date Last Done Comments HIV Screening 1994 Lipid Panel 1994 MMR Vaccines (1 of 1 - Standard series) 08/31/1995 Diabetes Screening 2012 Hepatitis C Screening 2012 Hepatitis B Vaccines (1 of 3 - 19+ 3-dose series) 2013 HPV/Cotest 08/31/2015 Yearly Adult Physical 11/09/2020 11/09/2019 HPV Vaccines (1 - 3-dose standard series) 2021 Cervical Cancer Screening 11/04/2022 Pap Smear 11/04/2022 11/05/2019 COVID-19 Vaccine (3 - 2023- season) 2023 12/19/2020, 11/21/2020 Influenza Vaccine (#1) 2024 11/02/2023 DTaP/Tdap/Td Vaccines (5 - Td or Tdap) 06/27/2033 06/28/2023, 01/26/2018, 04/27/2016, Additional history exists Zoster Vaccines (1 of 2) 2044 HIB Vaccines Aged Out No longer eligi ble based on patient's age to complete this topic Hepatitis A Vaccines Aged Out No long er eligible based on patient's age to complete this topic IPV Vaccines Aged Out No longer eligi ble based on patient's age to complete this topic Meningococcal Vaccine Aged Out No tyrell mayelin eligible based on patient's age to complete this topic Pneumococcal Vaccine: Pediatrics and At-Risk Adult Patients Aged Out No longer eligible based on patient's age to complete this topic Rotavirus Vaccines Aged Out No longer eligible based on patient's age to complete this topic Procedures Procedure Name Priority Date/Time Associated Diagnosis Comments ECG 12-LEAD Routine 09/27/2024 9:30 AM EDT Preop cardiovascular exam from Last 3 Months Results * ECG 12 Lead (09/27/2024 9:30 AM EDT) Narrative CPACS - 10/01/2024 5:24 PM EDT ECG revealed normal sinus rhythm normal ECG. us Ivette Jimenez SALES PERFORMANCE ANALYST-PHOTOVOLTAIC INSTALLER ECG ORDERABLES Final Res ult [facility]ACS from Last 3 Months Insurance [facility] Care Teams Clamper Relationship Specialty Start Date End Date Walker Henry DO [address] [place] [address] PCP - General Family Medicine 09/27/24
--- OUTSIDE RECORDS SUMMARY | 2024-10-22 19:50 | XMS_ITS | Encounter Summary ---
Author Organization [facility] Address [address] [place] [address] Care Team Providers Care Ecg Technician Name Role Phone Walker Henry DO Primary Care Provider [phone]- [phone] Ron Rhoades DO Unavailable [phone] Walker Henry DO Unavailable [phone] Encounter Details Date Type Department Care Team (Late st Contact Info) Description 02/10/2023 Orders Only [facility] [address] [facility] [address] [place] [id number] Walker Henry, DO [address] [facility] [address] [place] [address] Social History Tobacco Use Types Packs/Day Years [...] Procedure Name Priority Date/Time Associated Diagnosis Comments US 1ST TRIMESTER W/TRANSVAGINAL Routine 01/25/2023 3:11 PM EST documented in this encounter Results * US 1ST TRIMESTER W/TRANSVAGINAL (01/25/2023 3:11 PM EST) Anatomical Region Laterality Modality Radiographic Evangelina ging us Walker Henry DO IMG XR PROCEDURES Final Re sult documented in this encounter Visit Diagnoses Not on filedocumented in this encounter Care Teams Ecg Technician Relationship Specialty Start Date End Date Walker Henry DO [address] [place] [address] PCP - General Family Medicine 08/01/22 Ron Rhoades, DO [address] [place] [address] PCP - [facility] 06/01/22 Walker Henry, DO [address] [place] [address] PCP - [facility] 03/03/24 documented as of this encounter
--- OUTSIDE RECORDS SUMMARY | 2024-10-22 19:50 | XMS_ITS | Encounter Summary ---
Author Organization [facility] Address [address] [place] [address] Care Team Providers Care Box Car Washer Name Role Phone Walker Henry DO Primary Care Provider [phone] Ron Rhoades DO Unavailable [phone] Walker Henry DO Unavailable [phone] Encounter Details Date Type Department Care Team (Late st Contact Info) Description 01/27/2023 Orders Only [facility] [address] [place] [address] A, Unknown Practice [address] [id number] Social History Tobacco Use Types Packs/Day Years [...] Date/Time Associated Diagnosis Comments SCANNED LABS Routine 01/25/2023 5:04 PM EST US 1ST TRIMESTER W/TRANSVAGINAL Routine 01/25/2023 1:40 PM EST documented in this encounter Results * SCANNED LABS (01/25/2023 5:04 PM EST) us Unknown Practice A LAB CHG PERFORMABLES Final Re sult * US 1ST TRIMESTER W/TRANSVAGINAL (01/25/2023 1:40 PM EST) Anatomical Region Laterality Modality Radiographic Evangelina ging us Unknown Practice A IMG XR PROCEDURES Final Resul t documented in this encounter Visit Diagnoses Not on filedocumented in this encounter Care Teams Box Car Washer Relationship Specialty Start Date End Date Walker Henry, [address] [place] [address] PCP - General Family Medicine 08/01/22 Ron Rhoades DO [address] [place] [address] PCP - [facility] 06/01/22 Walker Henry DO [address] [place] [address] PCP - [facility] 03/03/24 documented as of this encounter
[2024-10-22 20:04] VITALS: BP 136/87; PULSE 94; O2SAT 99; BMI 24.9
[2024-10-22 22:02] VITALS: BP 128/95; PULSE 96; O2SAT 99
--- NOTE | 2024-10-22 22:11 | ED.FEMALEGU1 ---
HPI - Female Genitourinary General Chief complaint: Vaginal Bleeding Stated complaint: HYSTERECTOMY 3 WKS AGO/ NOW HEAVY BLEEDING Time Seen by Provider: 10/22/24 22:08 Source: patient Mode of arrival: walk-in History of Present Illness HPI Narrative: states hysterectomy 3 weeks ago at [facility]. States she started bleeding about 6 days ago. Was seen by her client partner 3 days ago in the office. States he did something to help stop the bleeding. She states the bleeding continues and she feels it is worse. Also also has pain. No fever. Does feel light headed. No urinary symptoms Related Data Home Medications ?Medication ?Instructions ?Recorded ?Confirmed clopidogrel 75 mg tablet 75 mg PO DAILY 10/22/24 10/22/24 lurasidone 20 mg tablet 80 mg PO DAILY 10/22/24 10/22/24 phentermine 37.5 mg tablet 37.5 mg PO DAILY 10/22/24 10/22/24 Allergies Allergy/AdvReac Type Severity Reaction Status Date / Time hydromorphone (From Dilaudid) Allergy Hives Verified 10/22/24 20:03 vancomycin Allergy Hives Verified 10/22/24 20:03 metoclopramide (From Reglan) AdvReac muscle Verified 10/22/24 20:03 Review of Systems ROS Status of ROS 10 or more systems reviewed and unremarkable except as noted in history and below PFSH PFSH Social History Little interest or pleasure in doing things: not at all Feeling down, depressed, or hopeless: not at all Exam Constitutional Vital Signs, click to edit/add: Last Vital Signs Pulse 96 H 10/22/24 22:02 Resp 20 10/22/24 22:02 BP 128/95 H 10/22/24 22:02 Pulse Ox 99 10/22/24 22:02 O2 Del Method Room Air 10/22/24 22:02 Common normals: no apparent distress, average body habitus, oriented x3, no limitations, healthy appearing, alert and well nourished [facility] Common normals: normocephalic and head/scalp atraumatic Eye Common normals: PERRL and EOMs intact bilaterally Respiratory Common normals: normal respiratory effort, no retractions, no use of accessory muscles and clear to auscultation bilaterally Cardio Common normals: regular rate, regular rhythm, S1 normal heart sound and S2 normal heart sound GI Common normals: Normal to inspection, nondistended, normoactive bowel sounds present and soft to palpation Other: mild suprapubic tenderness. No guarding Other: speculum exam with large clots in the vault. clots cleared using large cotton swabs. Repair site of vaginal cuff visualized and in intact with sm. oozing of blood. patient was not uncomfortable during the exam and removal of clots Extremity Common normals: normal to inspection and full ROM Neuro Common normals: oriented x3, CN's II-XII intact bilaterally, moves all extremities and no focal motor deficits Psych Appearance: grossly normal Course Vital Signs Vital signs: Vital Signs Pulse Rate 94 H 10/22/24 20:04 Respiratory Rate 20 10/22/24 20:04 Blood Pressure 136/87 10/22/24 20:04 Pulse Oximetry 99 10/22/24 20:04 Pulse Rate 96 H 10/22/24 22:02 Respiratory Rate 20 10/22/24 22:02 Blood Pressure 128/95 H 10/22/24 22:02 Pulse Oximetry 99 10/22/24 22:02 Oxygen Delivery Method Room Air 10/22/24 22:02 MDM - Female Genitourinary MDM Narrative Medical decision making narrative: s/p total hysterectomy 3 weeks ago. Now presents complaining of pain and bleeding. she is afebrile and CBC WNL. mild tenderness of palp of her lower abdomen. vaginal exam with large amount of blood clots that once cleared revealed intact vaginal cuff repair with mild oozing of blood. CT with findings of complex fluid in the pelvis that could represent abscess. Discussed with Dr Luciano her client partner who feels this is complex blood clot and not abscess. Clinically she does not have abscess either. He would like to see her in the next 2-3 days in the office. Recomend prophylatic antibiotic coverage until he sees her and to have him call him if she worsens Lab Data Labs: Lab Results 10/22/24 Range/Units 22:40 WBC 8.5 (4.0-11.0) 10^3/uL RBC 4.65 (4.20-5.40) 10^6/uL Hgb 12.7 (12.0-16.0) g/dL Hct 37.7 (36.0-48.0) % MCV 81.1 (81.0-99.0) fL MCH 27.3 (26.7-34.0) pg MCHC 33.7 (29.9-35.2) g/dL RDW 13.8 (11.0-15.0) % Plt Count 257 (150-450) 10^3/uL MPV 10.2 (9.5-13.5) fL Neut % (Auto) 50.8 (43.0-75.0) % Lymph % (Auto) 38.0 (20.5-60.0) % [place] % (Auto) 6.8 (1.7-12.0) % Eos % (Auto) 3.2 (0.9-7.0) % Baso % (Auto) 0.8 (0.2-2.0) % Neut # (Auto) 4.3 (1.4-6.5) 10^3/uL Lymph # (Auto) 3.2 (1.2-3.8) 10^3/uL [place] # (Auto) 0.6 (0.3-0.8) 10^3/uL Eos # (Auto) 0.3 (0.0-0.7) 10^3/uL Baso # (Auto) 0.1 (0.0-0.1) 10^3/uL Abs Immat Gran (auto) 0.03 (0.00-0.03) 10^3/uL Imm/Tot Granulo (auto) 0.4 (0.0-0.5) % Sodium 139 (136-145) mmol/L Potassium 3.7 (3.5-5.1) mmol/L Chloride 105 (98-107) mmol/L Carbon Dioxide 27.9 (21.0-32.0) mmol/L Anion Gap 9.8 BUN 11.0 (7.0-18.0) mg/dL Creatinine 0.89 (0.55-1.02) mg/dL Est GFR ( Amer) >60 (>=60 mL/min/1.73m^2) Est GFR (Non-Af Amer) >60 (>=60 mL/min/1.73m^2) BUN/Creatinine Ratio 12.4 Glucose 86 (74-106) mg/dL Lactate 0.4 (0.4-2.0) mmol/L Calcium 8.7 (8.5-10.1) mg/dL Total Bilirubin 0.3 (0.2-1.0) mg/dL AST 8 L (15-37) U/L ALT 13 L (14-59) U/L Alkaline Phosphatase 100 (46-116) U/L Total Protein 7.7 (6.4-8.2) g/dL Albumin 3.9 (3.4-5.0) g/dL Globulin 3.8 g/dL Albumin/Globulin Ratio 1.0 Discharge Plan Discharge Chief Complaint: Vaginal Bleeding Clinical Impression: Vaginal bleeding Patient Disposition: Home, Self-Care Prescriptions / Home Meds: No Action lurasidone 20 mg tablet 80 mg PO DAILY phentermine 37.5 mg tablet 37.5 mg PO DAILY clopidogrel 75 mg tablet 75 mg PO DAILY Print Language: Spanish Instructions: Abnormal (Dysfunctional) Uterine Bleeding (ED) Additional Instructions: follow up with Dr Luciano Friday. call him if any worsening Referrals: KASSY HO [Primary Care Provider, Unknown] - 1 week
[2024-10-22 23:03] LABS: Hematocrit 37.7 % (36.0-48.0); Hemoglobin 12.7 g/dL (12.0-16.0); Immature Granulocytes Abs Auto 0.03 10^3/uL (0.00-0.03); Immature Granulocytes Pct Auto 0.4 % (0.0-0.5); Lymphocytes Absolute Auto 3.2 10^3/uL (1.2-3.8); Mean Corpuscular HGB Conc 33.7 g/dL (29.9-35.2); Mean Corpuscular Hemoglobin 27.3 pg (26.7-34.0); Mean Corpuscular Volume 81.1 fL (81.0-99.0); Platelet Count 257 10^3/uL (150-450); Red Blood Count 4.65 10^6/uL (4.20-5.40); White Blood Count 8.5 10^3/uL (4.0-11.0)
[2024-10-22] MEDS: 0.9 % SODIUM CHLORIDE 1,000 ML 999 ML IV (23:10)
[2024-10-22 23:25] LABS: Alanine Aminotransferase 13 U/L (14-59); Albumin Globulin Ratio 1.0; Albumin Level 3.9 g/dL (3.4-5.0); Alkaline Phosphatase 100 U/L (46-116); Anion Gap 9.8; Aspartate Amino Transferase 8 U/L (15-37); Blood Urea Nitrogen 11.0 mg/dL (7.0-18.0); Calcium 8.7 mg/dL (8.5-10.1); Carbon Dioxide 27.9 mmol/L (21.0-32.0); Chloride 105 mmol/L (98-107); Estimated GFR (African America >60 (>=60 mL/min/1.73m^2); Estimated GFR (Non-African Ame >60 (>=60 mL/min/1.73m^2); Globulin 3.8 g/dL; Glucose 86 mg/dL (74-106); Potassium 3.7 mmol/L (3.5-5.1); Sodium 139 mmol/L (136-145); Total Protein 7.7 g/dL (6.4-8.2)
[2024-10-22 23:28] LABS: Lactate/Lactic Acid 0.4 mmol/L (0.4-2.0)
[2024-10-23] MEDS: METRONIDAZOLE 250 MG TABLET 500 MG PO (03:20)
[2024-10-23] MEDS: DOXYCYCLINE MONOHYDRATE 100 MG CAPSULE PO (03:20)
== END 2024-10-23 03:20 | disposition home or self-care (01) ==
PROVIDERS: Emergency Provider Internal Medicine; PCP Family Medicine
DX: N93.9 Abnormal uterine and vaginal bleeding, unspecified (principal); Z90.710 Acquired absence of both cervix and uterus
CPT/HCPCS: 36415; 74177; 80053; 83605; 85025; 99284; Q9967